=== PATIENT | female | born 1995 | race Caucasian/White ===

== ENCOUNTER 2018-10-01 05:48 | Inpatient (IN) | payer OTHER ==
[2018-10-01] MEDS ORDERED: LACTATED RINGER'S 1,000 ML IV (06:10)
[2018-10-01 06:27] LABS: RUPTURE FETAL MEMBRANES POSITIVE (NEGATIVE)
[2018-10-01] MEDS ORDERED: BUTORPHANOL 2 MG INJ IV (06:30)
[2018-10-01] MEDS ORDERED: AMPICILLIN 2 GM/NS (PMX) 100 ML IV (06:30)
[2018-10-01] MEDS ORDERED: CARBOPROST 250 MCG INJ IM ×2 (06:30→14:00)
[2018-10-01] MEDS ORDERED: MISOPROSTOL 200 MCG TAB PR ×2 (06:30→14:00)
[2018-10-01] MEDS ORDERED: LIDOCAINE 1% (MPF) 30 ML INJ INJ (06:30)
[2018-10-01] MEDS ORDERED: METHYLERGONOVINE 0.2 MG INJ IM ×2 (06:30→14:00)
[2018-10-01] MEDS ORDERED: IBUPROFEN 600 MG TAB PO (06:30)
[2018-10-01] MEDS ORDERED: OXYTOCIN 30 UNITS/LR 500 ML IV ×2 (06:30→14:00)
[2018-10-01] MEDS: LACTATED RINGER'S 1,000 ML IV (06:40)
[2018-10-01 06:58] LABS: ADD MAN DIFF? NO
[2018-10-01 07:00] LABS: BASOPHILS % 0.2 % (0.0-2.0); EOSINOPHILS # 0.1 10^3/ul (0.0-0.5); EOSINOPHILS % 1.1 % (0.0-7.0); HEMATOCRIT 36.1 % (37.0-47.0); LYMPHOCYTES # 1.7 10^3/ul (0.8-2.9); LYMPHOCYTES % 14.3 % (15.0-51.0); MEAN CORPUSCULAR HEMOGLOBIN 29.1 pg (29.0-33.0); MEAN CORPUSCULAR HGB CONC 33.2 g/dl (32.0-37.0); MEAN CORPUSCULAR VOLUME 87.6 fl (82.0-101.0); MEAN PLATELET VOLUME 11.2 fl (7.4-10.4); MONOCYTE # 0.6 10^3/ul (0.3-0.9); NEUTROPHIL # 9.1 10^3/ul (1.6-7.5); NEUTROPHILS % 78.6 % (39.0-77.0); PLATELET COUNT 270 10^3/UL (140-415); RED BLOOD COUNT 4.12 10^6/ul (4.20-5.40); RED CELL DISTRIBUTION WIDTH 13.4 % (11.5-14.5)
[2018-10-01 07:00] LABS: WHITE BLOOD COUNT 11.6 10^3/ul (4.8-10.8)
[2018-10-01 07:20] LABS: INR 0.89; PROTIME 12.1 Sec (11.9-14.9); PT RATIO 0.9
[2018-10-01 07:51] LABS: HEPATITIS B SURFACE ANTIGEN NEGATIVE (NEGATIVE)
[2018-10-01] MEDS: OXYTOCIN 30 UNITS/LR 500 ML IV ×2 (10:04→10:22)
[2018-10-01] MEDS ORDERED: AMPICILLIN 1 GM/NS (PMX) 50 ML IV (10:30)
[2018-10-01] MEDS ORDERED: HYDROCODONE/APAP (5/325) TAB PO ×2 (14:00)
[2018-10-01] MEDS ORDERED: ZOLPIDEM 5 MG TAB PO (14:00)
[2018-10-01] MEDS: KETOROLAC 30 MG INJ IV (15:15)
[2018-10-01] MEDS: LACTATED RINGER'S 1,000 ML IV* ×2 (15:15→17:43)
[2018-10-01] MEDS: IBUPROFEN 600 MG TAB PO ×3 (15:15→23:54)
[2018-10-01 16:29] LABS: RAPID PLASMA REAGIN NONREACTIVE (NR)
[2018-10-01] MEDS: WITCH HAZEL/GLYCERIN PAD PR (17:44)
[2018-10-01] MEDS: BENZOCAINE 20% 56 ML SPRAY TOP (17:44)
[2018-10-01] MEDS: LANOLIN HPA 1 PKT TOP (17:45)
[2018-10-01] MEDS: DIBUCAINE 1% 30 GM OINT TOP (17:45)
[2018-10-01] MEDS: MAGNESIUM HYDROXIDE 30ML CUP PO (20:34)
[2018-10-01] MEDS: SENNA/DOCUSATE NA (8.6MG/50MG) TAB PO (20:34)
[2018-10-02] MEDS: IBUPROFEN 600 MG TAB PO ×3 (05:42→18:05)
[2018-10-02 06:48] LABS: ADD MAN DIFF? NO
[2018-10-02 06:56] LABS: WHITE BLOOD COUNT 13.5 10^3/ul (4.8-10.8)
[2018-10-02 06:56] LABS: BASOPHILS % 0.3 % (0.0-2.0); EOSINOPHILS # 0.2 10^3/ul (0.0-0.5); EOSINOPHILS % 1.6 % (0.0-7.0); HEMATOCRIT 28.7 % (37.0-47.0); HEMOGLOBIN 9.5 g/dl (12.0-16.0); LYMPHOCYTES # 2.8 10^3/ul (0.8-2.9); LYMPHOCYTES % 21.1 % (15.0-51.0); MEAN CORPUSCULAR HEMOGLOBIN 29.1 pg (29.0-33.0); MEAN CORPUSCULAR HGB CONC 33.1 g/dl (32.0-37.0); MEAN PLATELET VOLUME 10.8 fl (7.4-10.4); MONOCYTE # 0.7 10^3/ul (0.3-0.9); MONOCYTES % 5.3 % (0.0-11.0); NEUTROPHIL # 9.6 10^3/ul (1.6-7.5); PLATELET COUNT 230 10^3/UL (140-415); RED BLOOD COUNT 3.26 10^6/ul (4.20-5.40); RED CELL DISTRIBUTION WIDTH 13.8 % (11.5-14.5)
[2018-10-02] MEDS: SENNA/DOCUSATE NA (8.6MG/50MG) TAB PO ×2 (09:27→21:49)
[2018-10-02] MEDS: MAGNESIUM HYDROXIDE 30ML CUP PO ×2 (09:27→21:00)
[2018-10-03] MEDS: IBUPROFEN 600 MG TAB PO ×3 (00:09→12:05)
[2018-10-03] MEDS: MAGNESIUM HYDROXIDE 30ML CUP PO (09:00)
[2018-10-03] MEDS: MEASLES,MUMPS,RUBELLA VACCINE INJ SC* (09:03)
[2018-10-03] MEDS: DIPHTH/TET/ACEL PERTUSS (ADULT) 0.5 ML VIAL IM* (09:03)
[2018-10-03] MEDS: VARICELLA VACCINE LIVE/PF 1,350 UNIT/0.5 ML ML SC* (09:03)
[2018-10-03] MEDS: SENNA/DOCUSATE NA (8.6MG/50MG) TAB PO (09:14)
== END 2018-10-03 15:37 | disposition home or self-care (01) | DRG 807 ==
LOC: OBT 05:48 → L-D 05:49 → OBT 05:51 → L-D 05:51 → PP1 15:18
PROVIDERS: Obstetrics & Gynecology
PROC: 10E0XZZ Delivery of Products of Conception, External Approach (ICD-10-PCS; principal; 2018-10-01)
PROC: 4A1HXCZ Monitoring of Products of Conception, Cardiac Rate, External Approach (ICD-10-PCS; 2018-10-01)
DX: O80 Encounter for full-term uncomplicated delivery (principal); Z37.0 Single live birth; Z3A.39 39 weeks gestation of pregnancy
CPT/HCPCS: 84112; 85025; 85610; 85730; 86592; 86850; 86900; 86901; 87340; 90716